=== PATIENT | female | born 1940 | race Caucasian/White ===

== ENCOUNTER 2016-07-18 11:02 | Emergency (ER) | payer MEDICARE, BC ==
[2016-07-18 11:56] VITALS: BP 125/65
--- NOTE | 2016-07-18 12:24 | UC ---
Throat Pain/Nasal Enrique HPI - HPI Summary HPI Summary: complaint of cocugh nasal congestion that has been intermittent for over 1 month productive cough and constant nasal drainage sinus pressure, headaches, ears feel full intermittent chills and fever coughing spasms at night denies shortness of breath using sinus flushes, mucinex, airborne, drinking fluids but not getting better - History of Current Complaint Chief Complaint: UCGeneralIllness Stated Complaint: CHEST COLD Time Seen by Provider: 07/18/16 12:16 - Allergies/Home Medications Allergies/Adverse Reactions: Allergies Allergy/AdvReac Type Severity Reaction Status Date / Time Bacitracin Allergy See Comment Verified 07/18/16 11:49 Brompheniramine Allergy Unknown Verified 07/18/16 11:49 [From Drixoral] Reaction Details Fentanyl Allergy Anaphylatic Verified 07/18/16 11:49 Shock Pseudoephedrine Allergy Unknown Verified 07/18/16 11:49 [From Drixoral] Reaction Details Statins Allergy LEG PAIN Verified 07/18/16 11:49 Sulfa Antibiotics Allergy Hives Verified 07/18/16 11:49 Home Medications: Home Medications Aspirin EC Low Dose* [Ecotrin EC Low Dose*] 1 tab DAILY 07/18/16 [History Confirmed 07/18/16] PMH/Surg Hx/FS Hx/Imm Hx Previously Healthy: Yes Cardiovascular History Of: Reports: Hypertension Respiratory History Of: Reports: Bronchitis - PAST ONLY Psychological History Of: Reports: Depression Cancer History Of: Denies: Breast Cancer - Surgical History Surgical History: Yes Surgery Procedure, Year, and Place: tubal,eye lids - Family History Known Family History: Negative: Cardiac Disease, Hypertension, Diabetes - Social History Occupation: Retired Lives: With Family Alcohol Use: Occasionally Alcohol Amount: STATES ONE GLASS OF WINE OR BEER occassionally Substance Use Type: None Smoking Status (MU): Former Smoker Amount Used/How Often: PACK A WEEK Have You Smoked in the Last Year: No When Did the Patient Quit Smoking/Using Tobacco: 2010 - Immunization History Most Recent Influenza Vaccination: 2016 Most Recent Tetanus Shot: 2008 Most Recent Pneumonia Vaccination: 2016 Review of Systems Constitutional: Fever, Chills Skin: Negative Eyes: Negative ENT: Ear Ache, Nasal Discharge Respiratory: Cough Cardiovascular: Negative Gastrointestinal: Negative Genitourinary: Negative Motor: Negative Neurovascular: Negative Musculoskeletal: Negative Neurological: Negative Psychological: Negative All Other Systems Reviewed And Are Negative: Yes Physical Exam Triage Information Reviewed: Yes Appearance: No Pain Distress, Well-Nourished Vital Signs: Initial Vital Signs Temp 97.7 F 07/18/16 11:51 Pulse 69 07/18/16 11:51 Resp 18 07/18/16 11:51 BP 125/65 07/18/16 11:51 Pulse Ox 100 07/18/16 11:51 Vital Signs Reviewed: Yes Eyes: Positive: Conjunctiva Clear ENT: Positive: Pharynx normal, Nasal congestion, TMs normal Neck: Positive: No Lymphadenopathy Respiratory: Positive: Decreased breath sounds, Rhonchi, Wheezing - LLL rhonchi , wheezing Cardiovascular: Positive: RRR, No Murmur, Pulses Normal Abdomen Description: Positive: Nontender Bowel Sounds: Positive: Present Musculoskeletal: Positive: No Edema Neurological: Positive: Alert Psychological Exam: Normal Skin Exam: Normal Throat Pain/Nasal Course/Dx - Course Course Of Treatment: exam completed. will treat pneumonia secondary to URI. pt refuses chest x-ray and albuterol inhaler. followup with PCP if no improvement - Differential Dx/Diagnosis Differential Diagnosis/HQI/PQRI: Sinusitis, Other - bronchitis, pneumonia Provider Diagnoses: pneumonia Discharge - Discharge Plan Condition: Stable Disposition: HOME Prescriptions: Azithromycin TAB* [Zithromax TAB (Z-KAE)*] 0 mg PO .Z-KAE INSTRUCTIONS #6 tab Patient Education Materials: Pneumonia (ED) Referrals: Chelsea Lehman MD [Primary Care Provider] - Additional Instructions: Please take antibiotic as directed. Increase fluids and rest Take acetaminophen or ibuprofen for fever or pain Please review your discharge instructions. If your symptoms do not improve please call your primary care provider or return to urgent care.
== END 2016-07-18 12:37 | disposition home or self-care (01) ==
LOC: UCEAST 11:02
DX: K04.7 Periapical abscess without sinus (principal); F17.210 Nicotine dependence, cigarettes, uncomplicated
CPT/HCPCS: 99212; G0463

== ENCOUNTER 2019-05-19 07:30 | Observation (INO) | payer MEDICARE, BC ==
--- NOTE | 2019-05-06 15:59 | HP ---
HISTORY AND PHYSICAL: DATE OF ADMISSION/SURGERY: 05/19/19 DATE OF OFFICE VISIT: 05/06/19 SURGEON: Farida Salazar MD * (DICTATED BY KEESHA ORTA NP) PROCEDURE: Right total knee arthroplasty. CHIEF COMPLAINT: Right knee pain. HISTORY OF PRESENT ILLNESS: Ms. Portre is a 78-year-old female with complaints of right knee pain. She has failed conservative treatment and elected to proceed with a right total knee arthroplasty. PAST MEDICAL HISTORY: 1. GERD. 2. High cholesterol. 3. Urinary incontinence. 4. Fibromyalgia. PAST SURGICAL HISTORY: 1. Left breast biopsy. 2. Tonsillectomy. 3. Tubal ligation. 4. Left total knee arthroplasty. 5. Eyebrow lift. 6. Cataract removal. CURRENT MEDICATIONS: 1. Valacyclovir 500 mg as needed. 2. Cymbalta 20 mg a day. 3. Oxybutynin 5 mg a day. 4. Advil as needed. 5. Eyebright. ALLERGIES: SULFA, BACITRACIN, NEOSPORIN, FENTANYL, DRIXORAL, and STATINS. FAMILY HISTORY: Coronary artery disease, [place], and cancer. SOCIAL HISTORY: She is a 78-year-old female. She lives alone. She does not smoke or use drugs. Uses occasional alcohol. REVIEW OF SYSTEMS: A complete 14-point review of systems was reviewed with the patient and was positive for GERD. She denies history of DVT, PE, hepatitis, or MRSA. She does report after she was given FENTANYL her O2 levels dropped very low. PHYSICAL EXAMINATION GENERAL: She is well developed, well nourished, in no acute distress. VITAL SIGNS: She stands 61 inches tall, weighs 158 pounds. Blood pressure is 132/90, heart rate is 76. HEENT: Normocephalic, atraumatic. NECK: Supple. No palpable lymph nodes. PULMONARY: The lungs are clear to auscultation bilaterally. CARDIO: Regular rate and rhythm. Strong S1, S2. ABDOMEN: Soft, nontender, nondistended. NEUROLOGICAL: She is alert and oriented x3. MUSCULOSKELETAL: Right lower extremity: The skin is intact. There are no open wounds or abrasions. She walks with an antalgic type gait favoring her right knee. She has moderate effusion of the right knee, some tenderness over the medial and lateral joint line. Range of motion is 5 to 120 degrees of flexion with significant patellofemoral crepitus. She has 2+ dorsalis pedis pulse, intact sensation. She is able to dorsiflex and plantarflex. ASSESSMENT AND PLAN: Ms. Porter is a 78-year-old female with severe end-stage osteoarthritis of the right knee. She has failed conservative treatment and elected to proceed with a right total knee arthroplasty. The surgery is scheduled for 05/19/[address] Salazar discussed the risks and benefits of the surgery at today's visit and all of her questions were answered. She will follow up with Dr. Salazar 2 weeks after the surgery. BONNIE SHERMAN [id number]/CPS #: [id number] MTDD
[~2019-05-19 07:30] MED LIST: Buffered Lidocaine 1% SYRIN* 1 ML/SYRINGE INTRADERM ONE; Lactated Ringers 1000 ML Bag* 1,000 ML IV SCH; Tranexamic Acid 1,000 MG in NS 0.9% 50 ML* (outpatient use) IV SCH
--- OUTSIDE RECORDS SUMMARY | 2019-05-19 10:11 | XMS REPORT | Continuity of Care Document ---
:1940 External Reference #:[id number] Author Name Cortes Jimenez NP (transmitted by agent of provider Nakita Davis) Address [address], [address] [place] [id number] Care Team Providers Name Role Phone Vlad Doan MD - Care Team Information Die Maker [phone] Otolaryngology Venancio Gurrola MD - Plastic and Care Team Information Die Maker [phone] Reconstructive Surgery Chelsea Lehman MD - Internal Care Team Information Die Maker Medicine Farida Salazar MD - Adult Care Team Information Die Maker [phone] Reconstructive Orthopaedic Surgery Problems Active Problems Provider Date Depressive disorder Humberto Garcia M.D. Onset: 07/30/2011 Urinary incontinence Humberto Garcia M.D. Onset: 07/30/2011 Benign essential hypertension Humberto Garcia M.D. Onset: 07/30/2011 Myalgia & Myositis Unspecified Humberto Garcia M.D. Onset: 07/30/2011 Mixed hyperlipidemia Humberto Garcia M.D. Onset: 12/17/2011 Localized, primary osteoarthritis Farida Salazar M.D. Onset: 08/15/2015 Note: knees Arthroplasty of knee Farida Salazar M.D. Onset: 05/25/2016 Acquired genu valgum Farida Salazar M.D. Onset: 02/13/2019 Social History Type Date Description Comments Sex Unknown Tobacco Use Start: Unknown former cigarette smoker End: Unknown ETOH Use Occasionally consumes alcohol ETOH Use Consumes 1 glass of wine per day Tobacco Use Start: Unknown Patient is a former smoked for 19 years, End: Unknown smoker quit in 2011 1 pack a week Recreational Drug Use Denies Drug Use Smoking Status Reviewed: 04/20/19 Patient is a former smoked for 19 years, smoker quit in 2011 1 pack a week Exercise Type/Frequency Exercises sporadically on and off a few miles per week but not regularly Allergies, Adverse Reactions, Alerts Active Allergies Reaction Severity Comments Date Sulfa 02/16/2010 Bacitracin 02/16/2010 02/16/2010 Fentanyl 12/02/2012 Drixoral 12/02/2012 Statins leg pain 04/27/2014 Medications Active Medications SIG Qnty Indications Ordering Date Provider Cane/Aluminum/Telesco Use while 1units R26.89 Cortes Jimenez NP 04/20/2019 pic/Medium ambulating. Handle/01/19" Med 01/19" Misc Amoxicillin Take 4 Capsules By 4caps Chelsea Lehman, 05/30/2017 500mg Mouth 1 Hour Prior M.D. Capsules To Dental Or GI Procedure Valacyclovir HCL 1 tab every 12 18tabs Cortes Jimenez NP 03/25/2017 500mg hour x 3 days at Tablets symptom onset Cymbalta Take 1 Capsule 90caps F32.9 Chelsea Lehman, 01/03/[address] Daily M.D. Part Oxybutynin Chloride take 1 tablet by 90tabs Chelsea Lehman, 08/09/2015 ER mouth every day M.D. 5mg Tablets ER 24HR Advil as needed Unknown 200mg Capsules Eye-Vites Unknown Tablets Medications Administered in Office Medication SIG Qnty Indications Ordering Provider Date Depomedrol 40MG Farida Salazar M.D. 08/15/2015 Injection Technetium TC 99M Silas Aranda M.D., 06/21/2014 Tetrofosmin, Per Unit Dose FAC, FASNC Up To 40 Millicuries Injection Inj, Regadenoson, 0.1 MG Evan Shoemaker M.D., [facility], 11/25/2012 Injection FSCAI Technetium TC 99M Evan Shoemaker M.D., [facility], 11/25/2012 Tetrofosmin, Per Unit Dose FSCAI Up To 40 Millicuries Injection Immunizations CPT Code Status Date Vaccine Lot # [id number] Given 04/17/2019 Influenza Virus Vaccine, Quadrivalent, Split, Preservative Free [id number] Given 05/08/2018 Fluzone High Dose 68743 Given 03/25/2017 Influenza Virus Vaccine, Quadrivalent, Split, [id number] Preservative Free 13252 Given 04/10/2016 Influenza Virus Vaccine, Quadrivalent, Split, [id number] Preservative Free 32330 Given 02/23/2015 Pneumococcal Conjugate Vaccine 13 Valent For [id number] Intramuscular Use Q2039 Given 05/09/2013 Flu Vaccine NOS Q2038 Given 04/09/2012 Fluzone Vaccine [id number] 05831 Given 04/09/2012 Tdap - Tetanus/Diptheria/Acellular Pertussis [id number] 40555 Given 04/09/2012 Tetanus And Diptheria (Td) For Adult Use Preservative Free Q2038 Given 05/29/2011 Fluzone Vaccine [id number] 97239 Given 08/01/2010 Zoster (Zostavax) [id number] 83175 Given 04/12/2010 Pneumonia Vaccine [id number] 34102 Given 04/12/2010 Influenza Virus 3Yrs & Over [id number] Q2039 Given Unknown Flu Vaccine NOS 41874 Given Unknown Flu Vaccine Split Virus Preservative Free For Indiv 3Yr Older [id number] Refused 04/07/2014 Flu Vaccine Split Virus Preservative Free For Indiv 3Yr Older Vital Signs Date Vital Result Comment 04/20/2019 9:31am Height 61.5 inches 5'1.50" Weight 160.00 lb Heart Rate 81 /min BP Systolic 115 mmHg BP Diastolic 72 mmHg Body Temperature 97.5 F O2 % BldC Oximetry 95 % BMI (Body Mass Index) 29.7 kg/m2 02/13/2019 2:50pm Height 61.5 inches 5'1.50" Weight 158.00 lb Heart Rate 76 /min BP Systolic 132 mmHg BP Diastolic 90 mmHg Respiratory Rate 18 /min Body Temperature 97.4 F Pain Level 6 BMI (Body Mass Index) 29.4 kg/m2 Results Test Date Facility Test Result H/L Range Note Lipid Profile 01/09/2019 [facility] Triglycerides 46 mg/dL 1 (Trig/Chol/HDL) [address] [place] [address] [phone] Cholesterol 225 mg/dL 2 HDL Cholesterol 70.0 mg/dL 3 LDL Cholesterol 146 mg/dL 4 Comp Metabolic 01/09/2019 [facility] Sodium 144 mmol/L Normal 135-[address] [place] [address] [phone] Potassium 4.3 mmol/L Normal 3.5-5.0 Chloride 109 mmol/L Normal 101-111 Co2 Carbon Dioxide 31 mmol/L Normal 22-32 Anion Gap 4 mmol/L Normal 2-11 Glucose 92 mg/dL Normal 70-100 Blood Urea Nitrogen 21 mg/dL Normal 6-24 Creatinine 0.95 mg/dL Normal 0.51-0.95 BUN/Creatinine Ratio 22.1 High 8-20 Calcium 9.4 mg/dL Normal 8.6-10.3 Total Protein 6.0 g/dL Low 6.4-8.9 Albumin 3.7 g/dL Normal 3.2-5.2 Globulin 2.3 g/dL Normal 2-4 Albumin/Globulin Ratio 1.6 Normal 1-3 Total Bilirubin 0.40 mg/dL Normal 0.2-1.0 Alkaline Phosphatase 66 U/L Normal 34-104 Alt 15 U/L Normal 7-52 Ast 21 U/L Normal 13-39 Egfr Non- 57.2 >60 Egfr 69.2 >60 5 1 Desirable: <150 Borderline High: 150-199 High: 200-499 Very High: >500 2 Desirable: <200 Borderline High: 200-239 High: >239 3 Low: <40 Desirable: 40-60 High: >60 4 Desirable: <100 Near Optimal: 100-129 Borderline High: 130-159 High: 160-189 Very High: >189 5 Because ethnic data is not always readily available, this report includes an eGFR for both -Americans and non- Americans. The National Kidney Disease Education Program (NKDEP) does not endorse the use of the MDRD equation for patients that are not between the ages of 18 and 70, are , have extremes of body size, muscle mass, or nutritional status, or are non- or non-. According to the National Kidney Foundation, irrespective of diagnosis, the stage of the disease is based on the level of kidney function: Stage Description GFR(mL/min/1.73 m(2)) 1 Kidney damage with normal or decreased GFR 90 2 Kidney damage with mild decrease in GFR 60-89 3 Moderate decrease in GFR 30-59 4 Severe decrease in GFR 15-29 5 Kidney failure <15 (or dialysis) Procedures Date Code Description Status 05/14/2018 [id number] Mammogram Completed 04/12/2017 [id number] Mammogram Completed 03/30/2016 [id number] Mammogram Completed 02/21/2015 [id number] Mammogram Completed 12/14/2013 [id number] Mammogram Completed 11/03/2013 [id number] Bone Mineral Density Test Completed 11/23/2011 [id number] Colonoscopy Completed 06/22/2011 [id number] Mammogram Completed 03/31/2010 [id number] Mammogram Completed Medical Devices Description No Information Available Encounters Type Date Location Provider Dx Diagnosis Office Visit 02/13/2019 [facility] Farida Salazar, M25.561 Pain in right 2:30p at [place] knee M25.461 Effusion, right knee M17.11 Unilateral primary osteoarthritis, right knee M21.061 Valgus deformity, not elsewhere classified, right knee Z96.652 Presence of left artificial knee joint Assessments Date Code Description Provider 04/20/2019 Z01.818 Encounter for other preprocedural examination Cotres Jimenez NP 04/20/2019 M25.561 Pain in right knee Cortes Jimenez NP 04/20/2019 M79.7 Fibromyalgia Cortes Jimenez NP 04/20/2019 R26.89 Other abnormalities of gait and mobility Cortes Jimenez NP 02/13/2019 M25.561 Pain in right knee Farida Salazar M.D. 02/13/2019 M25.461 Effusion, right knee Farida Salazar M.D. 02/13/2019 M17.11 Unilateral primary osteoarthritis, right knee Farida Salazar M.D. 02/13/2019 M21.061 Valgus deformity, not elsewhere classified, Farida Salazar M.D. right knee 02/13/2019 Z96.652 Presence of left artificial knee joint Farida Salazar M.D. Plan of Treatment Future Appointment(s):05/19/2019 7:30 am - Farida Salazar M.D. at [facility] at [id number]/06/2019 9:00 am - Farida Salazar M.D. at [facility] at Hgvqfn0805/11/2019 9:20 am - Cortes Jimenez NP at [facility] - [facility]04/20/2019 - Cortes Jimenez, NPZ01.818 Encounter for other preprocedural examinationNew Labs:Basic Metabolic Panel, Ordered: 04/20/19CBC Auto Diff, Ordered: 04/20/19Partial Thrombo Time PTT, Ordered: 04/20/19Inr/ Protime, Ordered: 04/20/19Type & Screen, Ordered: 04/20/19Urine Culture And Sensitivities, Ordered: 04/20/19New Orders:EKG, Ordered: 04/20/19M25.561 Pain in right kneeM79.7 VtnqqhmilynlS96.89 Other abnormalities of gait and mobilityNew Medication:Cane/Aluminum/Telescopic/Medium Handle/7/8" Med 7/8" - Use while ambulating. Functional Status Description No Information Available Mental Status Description No Information Available Referrals Description No Information Available
--- OUTSIDE RECORDS SUMMARY | 2019-05-19 10:11 | XMS REPORT | Continuity of Care Document ---
:1940 External Reference #:[id number] Author Name Cortes Jimenez NP (transmitted by agent of provider Debi Shannon) Address [address] [place] [address], [address] [place] [id number] Care Team Providers Name Role Phone Vlad Doan MD - Care Team Information Technology Development Intern [phone] Otolaryngology Venancio Gurrola MD - Plastic and Care Team Information Technology Development Intern [phone] Reconstructive Surgery Chelsea Lehman MD - Internal Care Team Information Technology Development Intern Medicine Farida Salazar MD - Adult Care Team Information Technology Development Intern [phone] Reconstructive Orthopaedic Surgery Problems Active Problems Provider [...] Use Denies Drug Use Smoking Status Reviewed: 05/11/19 Patient is a former smoked for 19 [...] 3 days at Tablets symptom onset Cymbalta take 1 capsule 90caps F32.9 Cortes Jimenez NP 01/03/[address] daily Part Oxybutynin Chloride take 1 tablet by 90tabs Chelsea Lehman, 08/09/2015 ER mouth every day M.D. 5mg Tablets ER 24HR Advil as needed Unknown 200mg Capsules Eye-Vites Unknown Tablets Medications Administered in Office Medication SIG Qnty Indications Ordering Provider Date Depomedrol 40MG Farida Salazar M.D. 08/15/2015 Injection Technetium TC 99M Silas Aranda M.D., 06/21/2014 Tetrofosmin, Per Unit Dose FAC, FASWI Up To 40 Millicuries Injection Inj, Regadenoson, 0.1 MG Evan Shoemaker M.D., [facility], 11/25/2012 Injection FSCAI Technetium TC 99M Evan Shoemaker M.D., [facility], 11/25/2012 Tetrofosmin, Per Unit Dose FSCAI Up To 40 Millicuries Injection Immunizations CPT Code Status Date Vaccine Lot # [id number] Given 04/17/2019 Influenza Virus Vaccine, Quadrivalent, Split, Preservative Free 65569 Given 05/08/2018 Fluzone High Dose 00810 Given 03/25/2017 Influenza Virus Vaccine, Quadrivalent, Split, [id number] Preservative Free 85743 Given 04/10/2016 Influenza Virus Vaccine, Quadrivalent, Split, [id number] Preservative Free 19506 Given 02/23/2015 Pneumococcal Conjugate Vaccine 13 Valent For [id number] Intramuscular Use Q2039 Given 05/09/2013 Flu Vaccine NOS Q2038 Given 04/09/2012 Fluzone Vaccine [id number] 99636 Given 04/09/2012 Tdap - Tetanus/Diptheria/Acellular Pertussis [id number] 72499 Given 04/09/2012 Tetanus And Diptheria (Td) For Adult Use Preservative Free Q2038 Given 05/29/2011 Fluzone Vaccine [id number] 80152 Given 08/01/2010 Zoster (Zostavax) [id number] 67697 Given 04/12/2010 Pneumonia Vaccine [id number] 50096 Given 04/12/2010 Influenza Virus 3Yrs & Over [id number] Q2039 Given Unknown Flu Vaccine NOS 07284 Given Unknown Flu Vaccine Split Virus Preservative Free For Indiv 3Yr Older 44092 Refused 04/07/2014 Flu Vaccine Split Virus Preservative Free For Indiv 3Yr Older Vital Signs Date Vital Result Comment 05/11/2019 9:31am Height 61.5 inches 5'1.50" Weight 158.50 lb Heart Rate 71 /min BP Systolic 111 mmHg BP Diastolic 65 mmHg Body Temperature 97.0 F O2 % BldC Oximetry 97 % BMI (Body Mass Index) 29.5 kg/m2 05/06/2019 9:08am Height 61.5 inches 5'1.50" Weight 160.00 lb Heart Rate 68 /min BP Systolic 126 mmHg BP Diastolic 74 mmHg Body Temperature 96.7 F Pain Level 0 BMI (Body Mass Index) 29.7 kg/m2 Results Test Date Facility Test Result H/L Range Note Basic Metabolic 04/20/2019 [facility] Sodium 142 mmol/L Normal 135-[address] [place] [address] [phone] Potassium 4.0 mmol/L Normal 3.5-5.0 Chloride 105 mmol/L Normal 101-111 Co2 Carbon Dioxide 32 mmol/L Normal 22-32 Anion Gap 5 mmol/L Normal 2-11 Glucose 73 mg/dL Normal 70-100 Blood Urea Nitrogen 17 mg/dL Normal 6-24 Creatinine 1.02 mg/dL High 0.51-0.95 BUN/Creatinine Ratio 16.7 Normal 8-20 Calcium 9.6 mg/dL Normal 8.6-10.3 Egfr Non- 52.7 >60 Egfr 63.8 >60 1 CBC Auto 04/20/2019 [facility] White Blood 4.7 10^3/uL Normal 3.5-10.[address] [place] [address] [phone] Red Blood Count 4.65 10^6/uL Normal 3.70-4.87 Hemoglobin 14.0 g/dL Normal 12.0-16.0 Hematocrit 42 % Normal 35-47 Mean Corpuscular Volume 91 fL Normal 80-97 Mean Corpuscular Hemoglobin 30 pg Normal 27-31 Mean Corpuscular HGB Conc 33 g/dL Normal 31-36 Red Cell Distribution Width 14 % Normal 10-15 Platelet Count 228 10^3/uL Normal 150-450 Mean Platelet Volume 7.3 fL Low 7.4-10.4 Abs Neutrophils 3.4 10^3/uL Normal 1.5-7.7 Abs Lymphocytes 0.8 10^3/uL Low 1.0-4.8 Abs Monocytes 0.4 10^3/uL Normal 0-0.8 Abs Eosinophils 0.1 10^3/uL Normal 0-0.6 Abs Basophils 0.0 10^3/uL Normal 0-0.2 Abs Nucleated RBC 0.0 10^3/uL Granulocyte % 72.7 % Lymphocyte % 17.5 % Monocyte % 7.8 % Eosinophil % 1.5 % Basophil % 0.5 % Nucleated Red Blood Cells % 0.1 Laboratory 04/20/2019 [facility] Partial 33.5 seconds Normal 26.0-38.0 test finding [address] [place] [address] Time PTT [phone] Inr/Protime 04/20/2019 [facility] Inr 0.85 Normal 0.82-1.[address] [place] [address] [phone] Type & Screen 04/20/2019 [facility] Patient A Positive [address] [place] [address] [phone] Antibody Screen NEGATIVE Urine Culture And 04/20/2019 [facility] Urine Culture SEE RESULT [address] [place] [address] [phone] Lipid Profile 01/09/2019 [facility] Triglycerides 46 mg/dL 4 (Trig/Chol/HDL) [address] [place] [address] [phone] Cholesterol 225 mg/dL 5 HDL Cholesterol 70.0 mg/dL 6 LDL Cholesterol 146 mg/dL 7 Comp Metabolic 01/09/2019 [facility] Sodium 144 mmol/L Normal 135-[address] [place] [address] [phone] Potassium 4.3 mmol/L Normal 3.5-5.0 Chloride 109 [...] Egfr Non- 57.2 >60 Egfr 69.2 >60 8 1 Because ethnic data is not always readily [...] 15-29 5 Kidney failure <15 (or dialysis) 2 Standard intensity warfarin therapeutic range: 2.0-3.0 High intensity warfarin therapeutic range: 2.5-3.5 3 SEE RESULT BELOW Name: TIANA PORTER : [address]: Farida Salazar MD Acct: [id number] Unit: [id number] AGE: 78 Location: [facility] Re04/20/19 SEX: F Status: REG REF SPEC: [id number] [facility]: 04/20/[address] [facility] [address]: Farida Salazar MD REQ: [id number] RECD: 04/20/19 STATUS: CHERI WARREN DR: Cortes Jimenez AGENCY OWNER _ SOURCE: URINE SPDESC: ORDERED: Urine Culture Urine Source: Random Procedure Result Reported Site Urine Culture Final 04/21/19- 1206 ML No Growth (<1,000 CFU/mL) * ML - Main Lab . END OF REPORT DEPARTMENT OF PATHOLOGY, [address] [place] [address] Jamir Iverson M.D. Director [facility] # [id number] 4 Desirable: <150 Borderline High: 150-199 High: 200-499 Very High: >500 5 Desirable: <200 Borderline High: 200-239 High: >239 6 Low: <40 Desirable: 40-60 High: >60 7 Desirable: <100 Near Optimal: 100-129 Borderline High: 130-159 High: 160-189 Very High: >189 8 Because ethnic data is not always readily [...] (or dialysis) Procedures Date Code Description Status 04/20/2019 91568 EKG Tracing & Interpretation Completed 05/14/2018 [id number] Mammogram Completed 04/12/2017 [id number] Mammogram Completed 03/30/2016 [id number] Mammogram Completed 02/21/2015 [id number] Mammogram Completed 12/14/2013 [id number] Mammogram Completed 11/03/2013 [id number] Bone Mineral Density Test Completed 11/23/2011 [id number] Colonoscopy Completed 06/22/2011 [id number] Mammogram Completed 03/31/2010 [id number] Mammogram Completed Medical Devices Description No Information Available Encounters Type Date Location Provider Dx Diagnosis Office Visit 04/20/2019 [facility] Cortes Jimenez NP Z01.818 Encounter for other 9:20a Medicine - [facility] preprocedural examination M25.561 Pain in right knee M79.7 Fibromyalgia R26.89 Other abnormalities of gait and mobility Office Visit 02/13/2019 2:30p [facility] Farida Salazar, M25.561 Pain in right at [facility].DClaudia knee M25.461 Effusion, right knee M17.11 Unilateral primary osteoarthritis, right knee M21.061 Valgus deformity, not elsewhere classified, right knee Z96.652 Presence of left artificial knee joint Assessments Date Code Description Provider 05/11/2019 Z00.00 Encounter for general adult medical examination Cortes Jimenez NP without abnormal findings 05/11/2019 E78.2 Mixed hyperlipidemia Cortes Jimenez NP 05/11/2019 Z12.31 Encounter for screening mammogram for malignant Cortes Jimenez NP neoplasm of breast 05/11/2019 N95.8 Other specified menopausal and perimenopausal Cortes Jimenez NP disorders 05/06/2019 M25.561 Pain in right knee Farida Salazar M.D. 05/06/2019 M25.461 Effusion, right knee Farida Salazar M.D. 05/06/2019 M17.11 Unilateral primary osteoarthritis, right knee Farida Salazar M.D. 05/06/2019 M21.061 Valgus deformity, not elsewhere classified, Farida Salazar M.D. right knee 04/20/2019 Z01.818 Encounter for other preprocedural examination Cortes Jimenez NP 04/20/2019 Z01.818 Encounter for other preprocedural examination Deja Sampson MD 04/20/2019 M25.561 Pain in right knee Cortes [...] Farida Salazar M.D. Plan of Treatment Future Appointment(s):05/12/2020 9:40 am - Cortes Jimenez NP at [facility] Internal Medicine - [facility]05/19/2019 10:30 am - Micah Irizarry PA-C at [facility] at [id number]/19/2019 10:30 am - BONNIE Knowles at [facility] at [id number]/01/2019 1:45 pm - Farida Salazar M.D. at [facility] at [id number] 10:30 am - Farida Salazar M.D. at [facility] at [id number] - Cortes Jimenez NPZ00.00 Encounter for general adult medical examination without abnormal findingsComments:VACCINES:Flu shot every year in the fall.Your last tetanus vaccine was in 2011. You should receive abooster is you sustain a significant injury.Shingles vaccine (Shingrix) recommended at age 50, even though you had the Zostavax. This is available at pharmacies. Pneumonia vaccines : You are up to date on these.SCREENING:Mammogram:Last in 2018. Repeat recommended this year. Pap: no longer indicated.Colonoscopy: Last in 2011. Repeat recommended in 2021. Screening for glaucoma: every 2 years unless otherwise instructed by your eye doctor Bone density: DEXA scan in 2013 was normal. Repeat this year. I recommend taking 1000 units of vitamin D daily.Try to get 1,200mg of calcium through diet.Continue weight bearing exercise.Follow up:1 yr and prnE78.2 Mixed weuzokhvxqebrfJ76.31 Encounter for screening mammogram for malignant neoplasm of gxgqcjC30.8 Other specified menopausal and perimenopausal disorders Functional Status Description No Information Available Mental Status Description No Information Available Referrals Description No Information Available
--- OUTSIDE RECORDS SUMMARY | 2019-05-19 10:11 | XMS REPORT | Continuity of Care Document ---
:1940 External Reference #:[id number] Author Name Farida Salazar M.D. (transmitted by agent of provider Isabela Varela) Address [address] [place] [address] Care Team Providers Name Role Phone Vlad Doan MD - Care Team Information Senior Software Tester [phone] Otolaryngology Venancio Gurrola MD - Plastic and Care Team Information Senior Software Tester [phone] Reconstructive Surgery Chelsea Lehman MD - Internal Care Team Information Senior Software Tester Medicine Farida Salazar MD - Adult Care Team Information Senior Software Tester [phone] Reconstructive Orthopaedic Surgery Problems Active Problems Provider [...] M.D. Onset: 05/25/2016 Acquired genu valgum Farida Salzaar M.D. Onset: 02/13/2019 Social History Type Date [...] Use Denies Drug Use Smoking Status Reviewed: 05/06/19 Patient is a former smoked for 19 [...] Inj, Regadenoson, 0.1 MG Evan Shoemaker M.D., [facility], 11/25/2012 Injection FSCAI Technetium TC 99M Evan Shoemaker M.D., [facility], 11/25/2012 Tetrofosmin, Per Unit Dose FSCAI Up To 40 Millicuries Injection Immunizations CPT Code Status Date Vaccine Lot # [id number] Given 04/17/2019 Influenza Virus Vaccine, Quadrivalent, Split, Preservative Free 35895 Given 05/08/2018 Fluzone High Dose 76021 Given 03/25/2017 Influenza Virus Vaccine, Quadrivalent, Split, [id number] Preservative Free 86459 Given 04/10/2016 Influenza Virus Vaccine, Quadrivalent, Split, [id number] Preservative Free 63669 Given 02/23/2015 Pneumococcal Conjugate Vaccine 13 Valent For [id number] Intramuscular Use Q2039 Given 05/09/2013 Flu Vaccine NOS Q2038 Given 04/09/2012 Fluzone Vaccine [id number] 18669 Given 04/09/2012 Tdap - Tetanus/Diptheria/Acellular Pertussis [id number] 44762 Given 04/09/2012 Tetanus And Diptheria (Td) For Adult Use Preservative Free Q2038 Given 05/29/2011 Fluzone Vaccine [id number] 21885 Given 08/01/2010 Zoster (Zostavax) [id number] 94382 Given 04/12/2010 Pneumonia Vaccine [id number] 69971 Given 04/12/2010 Influenza Virus 3Yrs & Over [id number] Q2039 Given Unknown Flu Vaccine NOS 67015 Given Unknown Flu Vaccine Split Virus Preservative Free For Indiv 3Yr Older 23522 Refused 04/07/2014 Flu Vaccine Split Virus Preservative Free For Indiv 3Yr Older Vital Signs Date Vital Result Comment 05/06/2019 9:08am Height 61.5 inches 5'1.50" Weight 160.00 lb Heart Rate 68 /min BP Systolic 126 mmHg BP Diastolic 74 mmHg Body Temperature 96.7 F Pain Level 0 BMI (Body Mass Index) 29.7 kg/m2 04/20/2019 9:31am Height 61.5 inches 5'1.50" Weight 160.00 lb Heart Rate 81 /min BP Systolic 115 mmHg BP Diastolic 72 mmHg Body Temperature 97.5 F O2 % BldC Oximetry 95 % BMI (Body Mass Index) 29.7 kg/m2 Results Test Date Facility Test Result H/L Range Note Basic Metabolic 04/20/2019 [facility] Sodium 142 mmol/L Normal 135-[address] [place] [address] [phone] Potassium 4.0 mmol/L Normal 3.5-5.0 Chloride 105 mmol/L Normal 101-111 Co2 Carbon Dioxide 32 mmol/L Normal 22-32 Anion Gap 5 mmol/L Normal 2-11 Glucose 73 mg/dL Normal 70-100 Blood Urea Nitrogen 17 mg/dL Normal 6-24 Creatinine 1.02 mg/dL High 0.51-0.95 BUN/Creatinine Ratio 16.7 Normal 8-20 Calcium 9.6 mg/dL Normal 8.6-10.3 Egfr Non- 52.7 >60 Egfr 63.8 >60 1 CBC Auto 04/20/2019 [facility] White Blood 4.7 10^3/uL Normal 3.5-10.[address] [place] [address] [phone] Red Blood Count 4.65 10^6/uL Normal 3.70-4.87 [...] Red Blood Cells % 0.1 Laboratory 04/20/2019 [facility] Partial 33.5 seconds Normal 26.0-38.0 test finding [address] [place] [address] Time PTT [phone] Inr/Protime 04/20/2019 [facility] Inr 0.85 Normal 0.82-1.[address] [place] [address] [phone] Type & Screen 04/20/2019 [facility] Patient A Positive [address] [place] [address] [phone] Antibody Screen NEGATIVE Urine Culture And 04/20/2019 [facility] Urine Culture SEE RESULT [address] [place] [address] [phone] Lipid Profile 01/09/2019 [facility] Triglycerides 46 mg/dL 4 (Trig/Chol/HDL) [address] [place] [address] [phone] Cholesterol 225 mg/dL 5 HDL Cholesterol 70.0 mg/dL 6 LDL Cholesterol 146 mg/dL 7 Comp Metabolic 01/09/2019 [facility] Sodium 144 mmol/L Normal 135-[address] [place] [address] [phone] Potassium 4.3 mmol/L Normal 3.5-5.0 Chloride 109 [...] [address]: Farida Salazar MD Acct: [id number] Unit: [id number] AGE: 78 Location: [facility] Re04/20/19 SEX: F Status: REG REF SPEC: [id number] [facility]: 04/20/[address] [facility] [address]: Farida Salazar MD REQ: [id number] RECD: 04/20/19 STATUS: CHERI WARREN DR: Cortes iJmenez PRODUCTION GRAPHIC DESIGNER _ SOURCE: URINE SPDESC: ORDERED: Urine Culture Urine Source: Random Procedure Result Reported Site Urine Culture Final 04/21/19- 1206 ML No Growth (<1,000 CFU/mL) * ML - Main Lab . END OF REPORT DEPARTMENT OF PATHOLOGY, [address] [place] [address] Jamir Iverson M.D. Director [facility] # [id number] 4 Desirable: <150 Borderline High: 150-199 High: [...] dialysis) Procedures Date Code Description Status 04/20/2019 18497 EKG Tracing & Interpretation Completed 05/14/2018 [id number] Mammogram Completed 04/12/2017 [id number] Mammogram Completed 03/30/2016 [id number] Mammogram Completed 02/21/2015 [id number] Mammogram Completed 12/14/2013 [id number] Mammogram Completed 11/03/2013 [id number] Bone Mineral Density Test Completed 11/23/2011 [id number] Colonoscopy Completed 06/22/2011 [id number] Mammogram Completed 03/31/2010 [id number] Mammogram Completed Medical Devices Description No Information Available Encounters Type Date Location Provider Dx Diagnosis Office Visit 02/13/2019 [facility] Farida Salazar, M25.561 Pain in right 2:30p at [place] [facility] knee M25.461 Effusion, right knee M17.11 Unilateral primary osteoarthritis, right knee M21.061 Valgus deformity, not elsewhere classified, right knee Z96.652 Presence of left artificial knee joint Assessments Date Code Description Provider 05/06/2019 M25.561 Pain in right knee Farida Salazar M.D. 05/06/2019 M25.461 Effusion, right knee Farida Salazar M.D. 05/06/2019 M17.11 Unilateral primary osteoarthritis, right knee Farida Salazar M.D. 05/06/2019 M21.061 Valgus deformity, not elsewhere classified, Farida Salazar M.D. right knee 04/20/2019 Z01.818 Encounter for other preprocedural examination Cortes Jimenez NP 04/20/2019 M25.561 Pain in right [...] Farida Salazar M.D. Plan of Treatment Future Appointment(s):06/01/2019 1:45 pm - Farida Salazar M.D. at [facility] at [id number]/19/2019 10:30 am - Farida Salazar M.D. at [facility]05/11/2019 9:20 am - Cortes Jimenez NP at [facility] Internal Medicine - [facility]05/06/2019 - Farida Salazar M.D.M25.561 Pain in right kneeFollow up:Follow up: 2 weeks after lkvosxsZ02.461 Effusion, right kneeM17.11 Unilateral primary osteoarthritis, right kneeM21.061 Valgus deformity, not elsewhere classified, right knee Functional Status Description No Information Available Mental Status Description No Information Available Referrals Description No Information Available
[2019-05-19] MEDS ORDERED: ROPIVACAINE 5 MG/ML 30 ML BTL (0.5%) ONE ×2 (10:14→11:47)
[2019-05-19] MEDS ORDERED: Lidocaine 2% PF * 5 ML VIAL ONE ×3 (10:14→13:22)
[2019-05-19] MEDS ORDERED: Dexmedetomidine* 200 MCG/2 ML 2 ML VIAL ONE (10:14)
[2019-05-19] MEDS ORDERED: Propofol* 500 MG/50 ML BTL ONE (10:14)
[2019-05-19] MEDS ORDERED: Propofol* 10 MG/ML 20 ML BTL ONE (10:14)
[2019-05-19] MEDS ORDERED: Midazolam* 1 MG/ML 2 ML VIAL (2 MG) ONE (10:17)
[2019-05-19] MEDS ORDERED: ceFAZolin 2 GM in NS PREMIX(*) 2 GM/100 ML BAG IVPB ONE (10:59)
[2019-05-19] MEDS ORDERED: Bupivacaine 0.5% SDV PF* 30ML VIAL ONE (12:51)
[2019-05-19] MEDS ORDERED: KETAMINE HCL* 50 MG/ML 10 ML VIAL ONE (13:02)
[2019-05-19] MEDS ORDERED: EPHEDrine (Pressors)* 50 MG/ML VIAL ONE ×2 (13:16→14:28)
[2019-05-19] MEDS ORDERED: Dexamethasone IV* 4 MG/ML 1 ML (4 MG) ONE (13:16)
[2019-05-19] MEDS ORDERED: Ondansetron INJ* 2 MG/ML VIAL IV PRN ×2 (13:18→15:18)
[2019-05-19] MEDS ORDERED: Acetaminophen IV 1GM/100ML * 10 MG/ML VIAL IVPB ONE (13:18)
[2019-05-19] MEDS ORDERED: oxyCODONE TAB* 5 MG TAB PO PRN ×2 (13:18→15:18)
[2019-05-19] MEDS ORDERED: Naloxone* 0.4 MG/ML 1 ML VIAL IV PRN (13:18)
[2019-05-19] MEDS ORDERED: HYDROmorphone INJ1* 1 MG/ML SYRINGE IV PRN (13:18)
[2019-05-19] MEDS ORDERED: Ketorolac INJ* 30 MG/ML 1 ML VIAL IV PRN (13:18)
[2019-05-19] MEDS ORDERED: EPINEPHrine SYR 0.1MG/ML* SYRINGE ONE (13:28)
[2019-05-19] MEDS ORDERED: Metoclopramide IV* 5 MG/ML 2 ML VIAL ONE (15:07)
[2019-05-19] MEDS ORDERED: Ondansetron INJ* 2 MG/ML VIAL ONE (15:07)
[2019-05-19] MEDS ORDERED: Ondansetron TAB* 4 MG PO PRN (15:18)
[2019-05-19] MEDS ORDERED: diPHENhydraMINE IV* 50 MG/ML 1 ml VIAL (BENADRYL) IV PRN (15:18)
[2019-05-19] MEDS ORDERED: Cyclobenzaprine TAB* 10 MG PO PRN (15:18)
[2019-05-19] MEDS ORDERED: Morphine INJ* 2 MG/ML 1 ML SYRINGE (TWO MG - NEW SYRINGE VERSION) IV PRN (15:18)
[2019-05-19] MEDS ORDERED: Ondansetron ODT TAB* 4 MG PO PRN (15:18)
[2019-05-19] MEDS ORDERED: Polyethylene Glycol 3350* 17 GM PACKET PO PRN (15:18)
[2019-05-19] MEDS ORDERED: traMADol TAB* 50 MG PO PRN (15:18)
[2019-05-19] MEDS ORDERED: diPHENhydraMINE PO* 25 MG PO PRN (15:18)
[2019-05-19] MEDS ORDERED: oxyCODONE/Acetamin 5/325 MG* TAB PO PRN (15:18)
[2019-05-19] MEDS ORDERED: Magnesium Hydroxide LIQ* 30 ML UDC PO PRN (15:18)
[2019-05-19] MEDS ORDERED: ValACYclovir (*) 500 MG TAB PO PRN (15:23)
--- NOTE | 2019-05-19 15:23 | OP ---
Operative Report - Blank - Operative Report Date of Operation: 05/19/19 Note: TIANA SORIANO 1940 Date of Surgery: 05/19/19 Farida Salazar MD Biblical Languages Professor: Scar NICOLE did help throughout the procedure with preparation of the knee, wound retraction, manipulation of the knee, and wound closure. Anesthesiologist: Marc AVALOS Anesthesia Type: Spinal Preoperative Diagnosis: Right severe degenerative osteoarthritis of the knee Postoperative Diagnosis: As above Procedure Performed: Right Total Knee Arthroplasty Tourniquet time: 42 minutes Complications: None Specimen: Bone and cartilage from the right knee joint sent to pathology. Hardware Used: Cemented [employer]ai [employer]hew total knee hardware was used - For the femur a size 4 narrow right legion posterior stabilized femoral component, for the tibia a size 3 right claudia II tibial baseplate, for the insert a size 9mm 3-4 posterior stabilized articular polyethylene insert, and for the patella a size 32 3-peg all poly patella. Brief History/Indication: TIANA SORIANO was known in clinic and had a history of severe right knee pain and swelling. She failed conservative treatment with anti-inflammatories, pain pills, intra-articular injections and physical therapy. She elected to undergo right total knee arthroplasty due to continued pain and decreased quality of life. Radiographs showed severe end stage osteoarthritis of the knee with bone on bone contact. Informed consent was obtained from the patient. She understood the risks of surgery included but were not limited to: bleeding, infection, damage to nearby structures, intraoperative fracture, nerve palsy, failure of the hardware, early loosening, knee stiffness or loss of motion, anesthesia complications, stroke, heart attack , blood clot and . She wished to proceed. Intra-Operative Findings: Intraoperatively the patient was noted to have severe loss of cartilage in all 3 compartments of the knee. Description of the Procedure: TIANA SORIANO was identified in the preanesthesia unit. Her right knee was marked as the correct operative side. Informed consent was signed and placed in the chart. The patient was taken to the operating room and placed under anesthesia without complication. A kaur catheter was placed. A tourniquet was placed on the right thigh. The right lower extremity was prepped and draped in the usual sterile fashion. Preoperative time-out was made to correctly identify the patient, side and site. Appropriate intraoperative antibiotics were given within one hour of incision. Tourniquet was inflated. A midline incision was made and carried sharply down to the extensor mechanism. A new 10 blade was used to make a standard medial parapatellar arthrotomy. The patella was subluxed laterally. Electrocautery was used to dissect soft tissue off the superomedial tibia to the midsagittal plane. The knee was flexed up. The anterior horn of the lateral meniscus and the ACL were sharply incised. A drill was used to enter the distal femur. The intramedullary distal femoral cutting guide was pinned on the distal femur. The oscillating saw was used to make the distal femoral cut. The external rotation guide was pinned on the distal femur and the distal femur was sized to a size 4. The size 4 multi-cutting jig was pinned on the distal femur. The oscillating saw was used to make the appropriate 4 chamfer cuts. Next the PCL was completely released. The extramedullary tibial cutting guide was pinned on the proximal tibia and the oscillating saw was used to make the proximal tibial cut perpendicular to the mechanical axis of the tibia. The bone was carefully removed. The knee was brought out into full extension. The spacer block was placed and had excellent fit with the knee in full extension. The medial and lateral ligaments were well balanced. The flexion and extension gaps were well balanced. The knee was flexed up. Lamina cork wirer was placed both medially and laterally. Any remaining meniscus was removed with electrocautery. Curved osteotome was used to remove any posterior osteophytes. The tibial tray and drop bashir were placed and confirmed a satisfactory tibial cut. The size 4 right narrow femoral trial was impacted onto the distal femur. This trial had excellent fit and stability. The box for the posterior stabilized implant was prepared using a box cut osteotome and a reamer. Next a tibial tray trial and 9 mm insert trial was placed. The knee was taken through a range of motion and had full extension to 130 degrees of flexion. Patellofemoral tracking was satisfactory. The patella was inverted and sized to a size 32. Three peg holes were drilled through the size 32 drill guide. The trial patella was placed and the knee was taken through a range of motion. There was satisfactory patellofemoral tracking. All trials were removed. The tibia was subluxed anteriorly and sized to a size 3. The proximal tibial was prepared with a size 3 keel punch. All bony cut surfaces were irrigated with sterile saline and dried. Final implants were cemented into place starting with the tibia, followed by the femur, and last the patella. A 9 mm insert trial was placed and the knee was brought into full extension. Tourniquet was turned down and the knee was copiously irrigated with sterile saline. Electrocautery was used to obtain meticulous hemostasis. Once the cement had fully cured, the insert trial was removed. Any excess cement was removed from around the hardware and capsule. Final insert chosen was a 9 mm posterior stabilized Claudia II articular insert size 3-4. Stability of the insert was checked and noted to be stable. The extensor mechanism was closed using number 1 vicryls. The rest of the incision was closed in a layered fashion using 0 and 2-0 vicryls. The skin was closed using 3-0 nylon suture. Sterile xeroform, 4x4s and webril were used to cover the incision. Ronny wrap and cold pack were used to cover the dressings. The patients anesthesia was reversed without difficulty. She was taken to the PACU in stable condition. Intended weight-bearing will be as tolerated.
[2019-05-19] MEDS ORDERED: Ketorolac INJ* 30 MG/ML 1 ML VIAL ONE (15:26)
--- NOTE | 2019-05-19 16:16 | PN ---
Progress Note - Progress Note Date of Service: 05/19/19 Note: resting comfortably in recovery; pain well controlled; able to dorsi flex/ plantar flex, 2+ DP pulse, intact sensation
[2019-05-19] MEDS: Lactated Ringers 1000 ML Bag* 1,000 ML IV SCH (17:15)
[2019-05-19] MEDS: ceFAZolin 1 GM ADVAN(*) 1 GM in NS 0.9% 50 ML* 50 ML IVPB SCH (21:04)
[2019-05-19] MEDS: Magnesium Hydroxide LIQ* 30 ML UDC PO SCH (21:04)
[2019-05-19] MEDS: Docusate CAP* 100 MG PO SCH (21:04)
[2019-05-19] MEDS: Acetaminophen TAB* 325 MG PO SCH (22:14)
[2019-05-20] MEDS: Lactated Ringers 1000 ML Bag* 1,000 ML IV SCH (03:18)
[2019-05-20] MEDS: ceFAZolin 1 GM ADVAN(*) 1 GM in NS 0.9% 50 ML* 50 ML IVPB SCH ×2 (04:53→14:30)
[2019-05-20] MEDS: Acetaminophen TAB* 325 MG PO SCH ×2 (05:44→14:29)
[2019-05-20 06:48] LABS: Hematocrit 34 % (35-47); Hemoglobin 11.6 g/dL (12.0-16.0); Mean Platelet Volume 7.3 fL (7.4-10.4); Platelet Count 187 10^3/uL (150-450)
[2019-05-20 06:54] LABS: BUN/Creatinine Ratio 17.9 (8-20); Calcium 8.9 mg/dL (8.6-10.3); EGFR Non-African American 50.4 (>60); Potassium 4.1 mmol/L (3.5-5.0)
[2019-05-20] MEDS: Magnesium Hydroxide LIQ* 30 ML UDC PO SCH (07:32)
[2019-05-20] MEDS: Docusate CAP* 100 MG PO SCH (07:32)
[2019-05-20] MEDS ORDERED: Oxybutynin XL TAB* 5 MG PO SCH (09:00)
[2019-05-20] MEDS ORDERED: Vitamin THERAPEUTIC TAB PO SCH (09:00)
[2019-05-20] MEDS ORDERED: Apixaban* 2.5 MG TAB PO SCH (09:00)
[2019-05-20] MEDS ORDERED: DULoxetine DR CAP* 20 MG CAP.DR PO SCH (09:00)
--- NOTE | 2019-05-20 11:06 | DS ---
Orthopedic Discharge Summary - Discharge Summary Date of Admission:05/19/19 Date of Discharge: 05/20/19 Date of Surgery: 05/19/19 Attending Orthopedic Provider: Dr Salazar Pre-operative Diagnosis: Right knee osteoarthritis Operative Procedure: right total knee replacement Disposition of Patient: home with VNS Condition of Patient: stable History: TIANA SORIANO is a 78 year old F with years of increasingly severe right knee pain. Patient has failed conservative management and has elected to undergo a right total knee replacement Hospital Course: TIANA was admitted to [facility] on 05/19/19. Patient underwent a right total knee replacement without complication followed by a brief recovery in PACU and transfer to the Short Stay Surgical Unit in stable condition. Our physical therapy service also participated in this patients care. Post-op day 1: Patient was seen at bedside. She felt well without CP, SOB, dizziness or nausea. Her pain was well controlled and she desired DC home. Patient was alert and in no acute distress. Dressing was changed and incisionw as clean, dry and intact. Operative extremity dorsiflexion and plantarflexion intact, sensation intact to light touch distally , DP2+. Patient was deemed to be medically and orthopedically stable for discharge. Physical therapy goals were met. Home Medications Medication Instructions Recorded Confirmed Type Oxybutynin XL TAB* [Ditropan XL 5 mg PO QAM #0 04/07/14 05/19/19 History TAB*] Amoxicillin PO (*) [Amoxicillin 4 cap PO SEE INSTRUCTIONS 05/06/19 05/19/19 History 500 MG CAP*] DULoxetine DR CAP* [Cymbalta CAP*] 20 mg PO QAM 05/06/19 05/19/19 History Eye Bright 1 tab PO QAM 05/06/19 05/19/19 History ValACYclovir (*) [Valtrex 500 mg 500 mg PO Q12H PRN 05/06/19 05/19/19 History (*)] Acetaminophen TAB* [Tylenol TAB*] 975 mg PO Q8HR tab 05/20/19 Rx Apixaban* [Eliquis*] 2.5 mg PO BID #60 tab 05/20/19 Rx Docusate CAP* [Colace Cap*] 100 mg PO BID PRN #90 cap 05/20/19 Rx traMADol TAB* [Ultram*] 50 mg PO Q6H PRN #50 tab MDD 8 05/20/19 Rx Discharge Instructions following Orthopedic Surgery: Activity: * Weight Bearing as tolerated * Continue physical therapy and occupational therapy exercises as shown * Home PT Wound care: * OK to shower on post-op day 3, no bathing, swimming, or submerging wound. * Use gentle soap, pat dry. Cover with gauze, LINDA wrap or tape. * Visiting home nurse to do wound checks. Call Orthopedic office for: * Increased drainage * Redness * Increased pain * Fever Go to ER with shortness of breath or chest pain. Diet: * Regular diet * Increase fluids and fiber to prevent constipation. * Continue to use stool softeners, call office if no bowel motion within 48 hours. Medications See Home Medication List in your packet for medications that you should take after discharge. DVT Prophylaxis: Increases bleeding tendency Eliquis Dosin.5 mg, 1 tab every 12 hours x 30 days Pain Control: Tramadol 50 mg tabs. one tab for moderate pain, 2 tabs for severe pain every 6 hours. Max 8 tabs per day. Hold for sedation, wean off as soon as pain allows Antibiotics are required prior to any dental work. FOLLOW UP: Follow up with [Martin ] Within 10-14 days, call for appointment Please call our office with any questions or concerns ([phone]) RX to [facility] [place]
[2019-05-20 11:34] VITALS: BP 111/52
[2019-05-21] MEDS ORDERED: Bisacodyl SUPP* 10 MG SUPP PR PRN (15:18)
== END 2019-05-20 15:45 | disposition home or self-care (01) ==
LOC: INTOOBSV 10:07 → AA 10:07 → SSU 15:18
PROVIDERS: ADMIT Orthopaedic Surgery Adult Reconstructive Orthopaedic Surgery; ATTEND Orthopaedic Surgery Adult Reconstructive Orthopaedic Surgery
DX: M17.11 Unilateral primary osteoarthritis, right knee (principal); K21.9 Gastro-esophageal reflux disease without esophagitis; E78.00 Pure hypercholesterolemia, unspecified; R32 Unspecified urinary incontinence; M79.7 Fibromyalgia; Z79.899 Other long term (current) drug therapy
CPT/HCPCS: 36415; 80048; 85014; 85018; 85049; 86850; 86900; 86901; 88305; 88311; 96374; 96375; 96376; A9270-GY; C1776; G0378; G8978-GP-CK; G8979-GP-CI; J0171; J0690; J1100; J1885; J2250; J2405; J2704; J2765; J2795; J3490